=== PATIENT | female | born 1975 | race Caucasian/White ===

== ENCOUNTER → 2017-09-29 | Day surgery (SDC) | payer OTHER ==
[~2017-09-29] VITALS: Ht 175.3 cm; Wt 195.0 kg
[~2017-09-29] MED LIST: ADVAIR 250-501 EACH INH; ALIVE WOMEN'S1 EACH PO; ALLEGRA ALLERG180 MG PO; ASPIRIN325 PO; MEDROXYPROGESTE10 MG PO; OMEPRAZOLE 20 M20 M1 PO; PERCOCET 7.5-31 EACH PO; VENTOLIN HFA 1818 GM INH; ZANTAC 150MG T150 MG PO
--- NOTE | ~2017-09-29 | O ---
[facility] [place] [address] OPERATIVE REPORT Name: LAWANDA BLACK Room #: [facility].#: [id number] Admission: 09/29/17 Attend Phys: Shashank Murillo MD Discharge: Date of : 71 Report #: [id number] THIS REPORT FOR: //name// CC: Chidi Murillo DATE OF SERVICE: 09/29/2017 PREOPERATIVE DIAGNOSES: 1. Left ankle instability. 2. Left ankle synovitis. 3. Left ankle peroneal tendon tear. POSTOPERATIVE DIAGNOSES: 1. Left ankle instability. 2. Left ankle synovitis. 3. Left ankle peroneus brevis and longus tendon tears. PROCEDURES: 1. Left ankle arthroscopic debridement with synovectomy. 2. Left ankle Brostrom-Wallis lateral ligament reconstruction. 3. Left ankle peroneus brevis and longus tendon repairs. SURGEON: Shashank Murillo M.D. PARTS CHASER: Coco SOLANO, critical for positioning and maintenance of alignment. ANESTHESIA: General. ESTIMATED BLOOD LOSS: Minimal. DRAINS: No drains. TOURNIQUET TIME: One hour. DESCRIPTION OF PROCEDURE: The patient was brought to the operating room, where she was placed under general anesthesia. Once under adequate general anesthesia, her left lower extremity was placed into an arthroscopic thigh support. The left lower extremity was then prepped and draped in a sterile manner. The extremity was elevated, exsanguinated and tourniquet placed to 300 mmHg. A Guhl ankle distractor was then placed across the ankle joint. An anteromedial and anterolateral arthroscopic portal was made in the usual fashion. Examination of the joint noted significant synovitis in the infra-syndesmotic region as well as in the anterior joint. A synovectomy was performed in these areas with the arthroscopic shaver. Once complete, the wound [address] [address] OPERATIVE REPORT Name: LAWANDA BLACK Room #: REG [facility]#: [id number] Admission: 09/29/17 Attend Phys: Shashank Murillo MD Discharge: Date of : 71 Report #: [id number] was irrigated copiously and the arthroscopic equipment was removed. The extremity was removed from the thigh support and a longitudinal incision based along the peroneal tendons was then made to dissect this approximately 8 cm in length. It was dissected down to the peroneal tendon sheath, which was then incised exposing the peroneus longus and brevis tendons. The peroneus brevis did note a tendon tear at the very distal fibula. This was approximately 1 cm in length. The tendon was debrided to good stable tendon tissue and the remainder was tubularized with 2-0 Prolene suture in a running stitch manner. Distally, at the peroneal tubercle, there was calcification and tear of the peroneus longus tendon. The peroneus longus did note significant tendinosis throughout. The calcified portion of the tendon was then resected along and subsequently, the remainder was tubularized with 2-0 Prolene suture as well. The peroneal tubercle was then identified and noted to be enlarged. Therefore, this was resected with a rongeur. This then did decompress the tendons considerably. Dissection was carried anteriorly to the inferior extensor retinaculum, which was identified and tagged for later use. The anterior talofibular ligament and the calcaneofibular ligament were then subsequently incised through the mid portions. The internal brace from [employer] was then placed, utilizing the drills and taps first and then subsequently placing the internal brace with the ankle held in the neutral position. Then, the ATFL and CFL were suture repaired with 0 Ethibond suture in a shortened position. The inferior extensor retinaculum was then advanced to the periosteum of the fibula with 0 Ethibond suture as well and excellent repair was then achieved in this manner and I completed the Brostrom portion of the procedure. The wound was irrigated copiously and closed with 0 Ethibond in the peroneal retinaculum, 2-0 Vicryl in subcutaneous tissues and luis for the skin. The wounds were dressed with Xeroform, 4 x 4s and a sterile soft compressive dressing and a short leg cast with the ankle in eversion was then placed. Tourniquet was let down at 1 hour. Toes were pink and warm with good capillary refill. There were no complications from the procedure. The patient tolerated the procedure well and went to the recovery room without incident. By: [id number] Shashank Murillo MD /nt
[2017-09-29 08:50] VITALS: BP 153/90
[2017-09-29 10:42] VITALS: BP 153/90
== END | disposition home or self-care (01) ==
LOC: OR 07:30
DX: M25.372 Other instability, left ankle (principal); M65.872 Other synovitis and tenosynovitis, left ankle and foot; S96.012A Strain of muscle and tendon of long flexor muscle of toe at ankle and foot level, left foot, initial encounter; J45.909 Unspecified asthma, uncomplicated; D64.9 Anemia, unspecified; K21.9 Gastro-esophageal reflux disease without esophagitis; Z90.49 Acquired absence of other specified parts of digestive tract; Z98.890 Other specified postprocedural states; Z79.82 Long term (current) use of aspirin; Z79.899 Other long term (current) drug therapy; Z79.891 Long term (current) use of opiate analgesic; X58.XXXA Exposure to other specified factors, initial encounter; Y93.89 Activity, other specified; Y92.89 Other specified places as the place of occurrence of the external cause; Y99.8 Other external cause status
CPT/HCPCS: 50010; 50101; 50386; 50612; 51038; 51412; 51647; 55430; 56524; 56525; 56526; 56529; 57091; 62110; 62900; 70005